=== PATIENT | female | born 1995 | race Caucasian/White ===

== ENCOUNTER 2021-11-16 06:24 | Emergency (ER) | payer SELFPAY ==
--- NOTE | 2021-11-16 07:09 | Emergency Department Report ---
HPI - General Chief Complaint: Allergic Reaction Time Seen by Provider: 11/16/21 07:03 - HPI HPI: Information was obtained from the nurse. According to nurse patient had allergic reaction at her work with possible catfish where patient stated she was short of breath and also throat closing up. On route patient was given 50 mg of IV Benadryl and also subcu epi x1. On arrival patient was drowsy and asleep. On my arrival mother was at the bedside. According to mother patient works for [employer]; night shift manager. Mother is not aware of patient with allergies to any thing and not to any seafood as she always have seafood. Patient appears to be drowsy but still arousable. When I asked the patient if she is any discomfort patient states no and patient said that she only feels very tired. Patient offers no other complaints. ED Past Medical Hx - Past Medical History Previous Medical History?: No ED Review of Systems ROS: Stated complaint: ANXIETY ATTACK/ALLERGIC RX Other details as noted in HPI Comment: All other systems reviewed and negative Constitutional: no symptoms reported, see HPI Eyes: as per HPI ENT: as per HPI Respiratory: no symptoms reported, see HPI Cardiovascular: as per HPI Endocrine: no symptoms reported, see HPI Gastrointestinal: as per HPI Genitourinary: as per HPI Musculoskeletal: as per HPI Skin: as per HPI Neurological: as per HPI Psychiatric: as per HPI Hematological/Lymphatic: as per HPI Physical Exam - Physical Exam Vital Signs: Vital Signs 11/16/21 11/16/21 11/16/21 06:32 06:51 06:59 Temperature 97.7 F 97.0 F L Pulse Rate 90 115 H Respiratory 18 24 17 Rate Blood Pressure 136/84 122/70 [Right] O2 Sat by Pulse 97 98 98 Oximetry General: NCAT, PERRLA, EOMI, NO PINPOINT PUPILS, DROWSY, DRY MUCOUS MEMBRANES, +S1/2, - M/R/G, CTA-B, - W/R/C/, +BS, SNTNDNNP, NO RASH/LESION. FULL ROM OF ALL EXTREMITIES. REPEAT BLOOD PRESSURE IN 120/80S. HR IN 110S. SATING 100% ON ROOM AIR. RESPIRATORY RATE NORMAL AND NO ACCESSORY MUSCLE USE. ED Course Vital Signs 11/16/21 11/16/21 11/16/21 06:32 06:51 06:59 Temperature 97.7 F 97.0 F L Pulse Rate 90 115 H Respiratory 18 24 17 Rate Blood Pressure 136/84 122/70 [Right] O2 Sat by Pulse 97 98 98 Oximetry ED Medical Decision Making - Medical Decision Making PATIENT REMAINS HEMODYNAMICALLY STABLE AND AFEBRILE. NO ACUTE ISSUE WHILE IN THE ER. I WILL GO AHEAD AND D/C HER. INFORMED TO FOLLOW UP WITH PCP WITHIN 3 DAYS. RETURN TO ER IF ANY NEW SYMPTOMS. Critical care attestation.: If time is entered above; I have spent that time in minutes in the direct care of this critically ill patient, excluding procedure time. ED Disposition Clinical Impression: Allergic reaction Disposition: 01 HOME / SELF CARE / HOMELESS Is pt being admited?: No Does the pt Need Aspirin: No Condition: Stable Instructions: Allergies, Adult, [id number] Additional Instructions: MAKE A FOLLOW UP APPOINTMENT WITH YOUR PRIMARY CARE PROVIDER TO BE SEEN WITHIN 3 DAYS FOR EMERGENCY ROOM VISIT FOLLOW UP. Forms: Work/School Release Form(ED) Time of Disposition: 08:34
[2021-11-16 08:24] VITALS: BP 106/58
[2021-11-16] MEDS ORDERED: SODIUM CHLORIDE 0.9% 100 ML IVPB IV SCH (10:00)
== END 2021-11-16 09:22 | disposition home or self-care (01) ==
LOC: ED 06:24
DX: T78.40XA Allergy, unspecified, initial encounter (principal); X58.XXXA Exposure to other specified factors, initial encounter
CPT/HCPCS: 99283